=== PATIENT | male | born 1985 | race Caucasian/White ===

== ENCOUNTER 2020-11-19 08:12 | Emergency (ER) | payer OTHER, SELFPAY ==
[~2020-11-19] VITALS: Ht 182.9 cm; Wt 113.4 kg
[~2020-11-19 08:12] MED LIST: ALBU90OI INH; CRUTCH4 USE; DOXY100 PO; HYDACE5 PO; PROCODE120 PO
[2020-11-19 08:41] LABS: BASOPHILS ABSOLUTE AUTO 0.06 K/mm3 (0.00-0.23); BASOPHILS PERCENT AUTO 1 % (0-2); EOSINOPHILS ABSOLUTE AUTO 0.23 K/mm3 (0.00-0.68); EOSINOPHILS PERCENT AUTO 2 % (0-6); Hematocrit 51.5 % (37.0-53.0); Hemoglobin 17.7 g/dL (13.5-17.5); IMMATURE GRAN ABSOLUTE AUTO 0.04 K/mm3 (0.00-0.10); IMMATURE GRAN PERCENT AUTO 0 % (0-1); LYMPHOCYTES ABSOLUTE AUTO 4.55 K/mm3 (0.84-5.20); LYMPHOCYTES PERCENT AUTO 34 % (21-46); MONOCYTES ABSOLUTE AUTO 0.75 K/mm3 (0.16-1.47); MONOCYTES PERCENT AUTO 6 % (4-13); Mean Corpuscular HGB Conc 34.4 g/dL (31.5-36.5); Mean Corpuscular Volume 93 fL (80-100); Mean Platelet Volume 8.2 fL (9.1-12.4); NEUTROPHILS ABSOLUTE AUTO 7.64 K/mm3 (1.96-9.15); NEUTROPHILS PERCENT AUTO 58 % (41-73); Platelet Count 301 K/mm3 (150-400); RDW Coefficient Variation 12.9 % (11.7-14.2); RDW Standard Deviation 43.9 fL (35.1-46.3); Red Blood Cell Count 5.53 M/mm3 (4.30-5.90); White Blood Cell Count 13.27 K/mm3 (4.00-11.30)
[2020-11-19 08:59] LABS: Alanine Aminotransfer (ALT/SGP 93 U/L (12-78); Albumin, Blood 4.3 g/dL (3.4-5.0); Albumin/Globulin Ratio 1.1 (0.8-1.8); Alk Phos 75 U/L (50-136); Anion Gap 4 mmol/L (6-16); Aspartate Aminotrans (AST/SGOT 48 U/L (12-37); Bilirubin, Total 0.6 mg/dL (0.1-1.0); Blood Urea Nitrogen 11 mg/dL (8-24); Bun/Creatinine Ratio 11.9 (12.0-20.0); CO2, Blood 30 mmol/L (21-32); Calcium, Blood 9.9 mg/dL (8.5-10.1); Chloride, Blood 106 mmol/L (98-108); Creatinine, Blood 0.93 mg/dL (0.60-1.20); Globulin, Blood 3.9 g/dL (2.2-4.0); Glomerular Filtration Rate >60 (60-); Glucose, Blood 109 mg/dL (70-99); Sodium, Blood 140 mmol/L (136-145); Total Protein, Blood 8.2 g/dL (6.4-8.2)
[2020-11-19] MEDS ORDERED: METR500 PO (09:45)
[2020-11-19] MEDS ORDERED: CIPR500 PO (09:45)
[2021-03-01] MEDS ORDERED: CHLO25B PO (13:00)
[2021-03-01] MEDS ORDERED: ALLEGRA ALLERG180 MG PO (13:01)
[2021-03-01] MEDS ORDERED: LOSA25 PO (13:01)
== END 2020-11-19 09:52 | disposition home or self-care (01) ==
LOC: ER 08:12
PROVIDERS: Emergency Medicine
DX: R10.31 Right lower quadrant pain (principal); R11.0 Nausea
CPT/HCPCS: 36415; 74177; 80053; 83690; 85025; 96361; 96374; 96375; 99284-25; J2270; J2405; J7030; Q9967

== ENCOUNTER 2021-03-02 07:50 | Day surgery (SDC) | payer OTHER ==
[~2021-03-02] VITALS: Ht 182.9 cm; Wt 117.6 kg
[~2021-03-02 07:50] MED LIST changes: +ALLEGRA ALLERG180 MG PO; +CHLO25B PO; +CIPR500 PO; +LOSA25 PO; +METR500 PO
--- NOTE | 2021-03-02 08:57 | NUR ---
Ambulatory in Day Surgery. Patient states colon prep results clear. History, Chart, Medications and Allergies reviewed before start of procedure. Patient confirms NPO status and agrees with scheduled surgery. Patient States Post-Procedure ride home has been arranged.
--- NOTE | 2021-03-02 11:31 | NUR ---
Patient up to Ambulate independently. Gait steady. Discharge instructions reviewed with patient. Patient verbalizes understanding. Copy given to patient to take home.REVIEWED WITH VIA TELEPHONE PER PT REQUEST. Discharged via wheelchair to private car for ride home WITH
== END 2021-03-02 11:34 | disposition home or self-care (01) ==
LOC: ORSCMMR 07:50 → ORD 09:00 → ORSCMMR 09:00
PROVIDERS: Internal Medicine Gastroenterology
PROC: 0DB98ZX Excision of Duodenum, Via Natural or Artificial Opening Endoscopic, Diagnostic (ICD-10-PCS; principal; 2021-03-02 09:00)
PROC: 0DBN8ZX Excision of Sigmoid Colon, Via Natural or Artificial Opening Endoscopic, Diagnostic (ICD-10-PCS; principal; 2021-03-02 09:00)
PROC: 0DBK8ZX Excision of Ascending Colon, Via Natural or Artificial Opening Endoscopic, Diagnostic (ICD-10-PCS; principal; 2021-03-02 09:00)
PROC: 0DBB8ZX Excision of Ileum, Via Natural or Artificial Opening Endoscopic, Diagnostic (ICD-10-PCS; principal; 2021-03-02 09:00)
PROC: 0DBL8ZX Excision of Transverse Colon, Via Natural or Artificial Opening Endoscopic, Diagnostic (ICD-10-PCS; principal; 2021-03-02 09:00)
PROC: 0DB68ZX Excision of Stomach, Via Natural or Artificial Opening Endoscopic, Diagnostic (ICD-10-PCS; principal; 2021-03-02 09:00)
PROC: 0DB48ZX Excision of Esophagogastric Junction, Via Natural or Artificial Opening Endoscopic, Diagnostic (ICD-10-PCS; principal; 2021-03-02 09:00)
DX: R10.13 Epigastric pain (principal); R19.7 Diarrhea, unspecified; K25.9 Gastric ulcer, unspecified as acute or chronic, without hemorrhage or perforation; I10 Essential (primary) hypertension; F17.210 Nicotine dependence, cigarettes, uncomplicated; E66.01 Morbid (severe) obesity due to excess calories; Z68.35 Body mass index [BMI] 35.0-35.9, adult; Z79.899 Other long term (current) drug therapy
CPT/HCPCS: 88305; 88342; A9270; J2250; J2704; J7120

== ENCOUNTER → 2021-08-23 | Outpatient (CLI) | payer OTHER ==
[2021-08-23 18:54] LABS: BASOPHILS ABSOLUTE AUTO 0.07 K/mm3 (0.00-0.23); BASOPHILS PERCENT AUTO 1 % (0-2); EOSINOPHILS ABSOLUTE AUTO 0.26 K/mm3 (0.00-0.68); EOSINOPHILS PERCENT AUTO 2 % (0-6); Hematocrit 52.1 % (37.0-53.0); Hemoglobin 18.4 g/dL (13.5-17.5); IMMATURE GRAN ABSOLUTE AUTO 0.03 K/mm3 (0.00-0.10); IMMATURE GRAN PERCENT AUTO 0 % (0-1); LYMPHOCYTES ABSOLUTE AUTO 3.53 K/mm3 (0.84-5.20); LYMPHOCYTES PERCENT AUTO 33 % (21-46); MONOCYTES ABSOLUTE AUTO 0.78 K/mm3 (0.16-1.47); MONOCYTES PERCENT AUTO 7 % (4-13); Mean Corpuscular HGB 32.9 pg (26.0-34.0); Mean Corpuscular HGB Conc 35.3 g/dL (31.5-36.5); Mean Corpuscular Volume 93 fL (80-100); Mean Platelet Volume 8.4 fL (9.1-12.4); NEUTROPHILS ABSOLUTE AUTO 6.17 K/mm3 (1.96-9.15); NEUTROPHILS PERCENT AUTO 57 % (41-73); Platelet Count 346 K/mm3 (150-400); RDW Coefficient Variation 13.8 % (11.7-14.2); RDW Standard Deviation 46.7 fL (35.1-46.3); Red Blood Cell Count 5.59 M/mm3 (4.30-5.90); White Blood Cell Count 10.84 K/mm3 (4.00-11.30)
[2021-08-23 19:17] LABS: Alanine Aminotransfer (ALT/SGP 53 U/L (12-78); Albumin, Blood 3.8 g/dL (3.4-5.0); Albumin/Globulin Ratio 0.9 (0.8-1.8); Alk Phos 76 U/L (50-136); Anion Gap 6 mmol/L (6-16); Aspartate Aminotrans (AST/SGOT 29 U/L (12-37); Bilirubin, Total 0.7 mg/dL (0.1-1.0); Blood Urea Nitrogen 8 mg/dL (8-24); Bun/Creatinine Ratio 8.7 (12.0-20.0); CO2, Blood 29 mmol/L (21-32); Calcium, Blood 8.7 mg/dL (8.5-10.1); Chloride, Blood 100 mmol/L (98-108); Creatinine, Blood 0.92 mg/dL (0.60-1.20); Globulin, Blood 4.2 g/dL (2.2-4.0); Glomerular Filtration Rate >60 (60-); Glucose, Blood 102 mg/dL (70-99); Sodium, Blood 135 mmol/L (136-145)
== END ==
LOC: LAB SHORT 16:10
PROVIDERS: Physician Assistant
DX: I10 Essential (primary) hypertension (principal); F10.10 Alcohol abuse, uncomplicated; R53.83 Other fatigue
CPT/HCPCS: 80053; 84443; 85025

== ENCOUNTER 2022-02-27 10:10 | Inpatient (IN) | payer OTHER ==
[~2022-02-27] VITALS: Ht 182.9 cm; Wt 118.2 kg
[2022-02-27 10:36] LABS: BASOPHILS ABSOLUTE AUTO 0.03 K/mm3 (0.00-0.23); BASOPHILS PERCENT AUTO 0 % (0-2); EOSINOPHILS ABSOLUTE AUTO 0.05 K/mm3 (0.00-0.68); EOSINOPHILS PERCENT AUTO 1 % (0-6); Hematocrit 49.3 % (37.0-53.0); Hemoglobin 17.6 g/dL (13.5-17.5); IMMATURE GRAN ABSOLUTE AUTO 0.03 K/mm3 (0.00-0.10); IMMATURE GRAN PERCENT AUTO 0 % (0-1); LYMPHOCYTES ABSOLUTE AUTO 1.54 K/mm3 (0.84-5.20); LYMPHOCYTES PERCENT AUTO 18 % (21-46); MONOCYTES ABSOLUTE AUTO 0.56 K/mm3 (0.16-1.47); MONOCYTES PERCENT AUTO 6 % (4-13); Mean Corpuscular HGB Conc 35.7 g/dL (31.5-36.5); Mean Corpuscular Volume 95 fL (80-100); Mean Platelet Volume 8.4 fL (9.1-12.4); NEUTROPHILS PERCENT AUTO 75 % (41-73); Platelet Count 276 K/mm3 (150-400); RDW Coefficient Variation 13.7 % (11.7-14.2); RDW Standard Deviation 47.9 fL (35.1-46.3); Red Blood Cell Count 5.18 M/mm3 (4.30-5.90); White Blood Cell Count 8.81 K/mm3 (4.00-11.30)
[2022-02-27 10:51] LABS: Albumin, Blood 3.7 g/dL (3.4-5.0); Bilirubin, Total 0.6 mg/dL (0.1-1.0); Calcium, Blood 8.9 mg/dL (8.5-10.1); Creatinine, Blood 0.82 mg/dL (0.60-1.20); Globulin, Blood 3.6 g/dL (2.2-4.0); Potassium, Blood 3.6 mmol/L (3.5-5.5); Total Protein, Blood 7.3 g/dL (6.4-8.2)
[2022-02-27] MEDS ORDERED: Klor-Con M1010 MEQ PO (11:45)
[2022-02-27] MEDS ORDERED: OMEP20ER PO (11:46)
[2022-02-27] MEDS ORDERED: XYZAL5 MG PO (11:46)
[2022-02-27 11:57] LABS: Anti-Xa UFH, PHA Monitoring <0.10 IU/mL; International Normalized Ratio 1.01; Prothrombin Time Results 10.6 Sec (9.7-11.5)
[2022-02-27 12:19] LABS: SARS-Cov-2 (COVID-19) PCR, MMC NEGATIVE (NEGATIVE)
--- NOTE | 2022-02-27 14:55 | NUR ---
PT ARRIVED TO THE MEDICAL FLOOR VIA [facility] A/OX4, PLEASANT AND COOPERATIVE. THE PT WAS ABLE TO TRANSFER FROM THE GURNEY TO THE BED WITH MINIMAL ASSISTANCE. THE PT REPORTED THAT HE FELT LIGHT HEADED AND DIZZY, O2 WAS APPLIED AT 2L/MIN. THE PT DENIED ANY CHEST PAIN AT THIS TIME. THE PTS TROPONIIN WAS ELEVATED CRITICAL HIGH, ROBINA BOWENS HAD THE PT TRANSFERED TO PCU FOR CLOSER OBSERVATION. REPORT WAS CALLED TO FABIOLA BLANDON IN PCU. PT IS ON A CONTINUOS HEPRIN GTT AT THIS TIME. THE PT WAS TRANSFERED VIA WHEELCHAIR ACCOMPANIED BY THE HEADING AND PRIMING TOOL SETTER AND COMMUNITY HEALTH PROGRAM COORDINATOR.
[2022-02-27 15:05] LABS: CHOL/HDL RATIO 3.4; Cholesterol 168 mg/dL (50-200); HDL Cholesterol 49 mg/dL (>39); LDL/HDL RATIO 2.2; Low Density Lipoprotein Chol 106 mg/dL (0-110); Triglycerides 66 mg/dL (30-140); Very Low Density Lipoprot Chol 13 mg/dL (6-28)
--- NOTE | 2022-02-27 16:11 | NUR ---
SPOKE WITH PT PER POSSIBLE CPAP USE AT NIGHT ORDER. PT DENIES ANY USE OF OXYGEN, CPAP OR BIPAP WITH SLEEP.
[2022-02-27 16:57] LABS: U Amphetamine Screen Not Detected; U Barbituate Screen Not Detected; U Benzodiazapine Screen Not Detected; U Cannabinoids Screen DETECTED; U Cocaine Screen Not Detected; U Methadone Screen Not Detected; U Methamphetamine Screen Not Detected; U Opiates Screen DETECTED; U Phencyclidine Screen Not Detected
[2022-02-27 16:58] LABS: U Buprenorphine Screen Not Detected; U Oxycodone Screen Not Detected; U Propoxyphene Screen Not Detected
--- NOTE | 2022-02-27 18:07 | NUR ---
SHIFT SUMMARY: PT ARRIVES FROM MEDICAL FLOOR VIA W/C APPROX 1500, TRANSFERS SELF TO BED W/OUT DIFFICULTY. PT A&Ox4, ANSWERS QUESTIONS APPROPRIATELY, COOPERATIVE WITH CARE. PT DENIES SOB, MAINTAINS O2 SATS >92% ON RA. SINCE ARRIVAL TO UNIT, PT HAS DENIED CHEST PAIN/PRESSURE, SR ON MONITOR. HEPARIN INFUSION CONTINUES PER ORDERS. PT INDEPENDENT IN ROOM. AT THIS TIME, PLAN IS FOR PT TO BE NPO AT MIDNIGHT FOR ANGIOGRAM TOMORROW. DR FAYE HAS BEEN TO BEDSIDE AND EXPLAINED PLAN TO PT AND SPOUSE. PT RESTING QUIETLY IN BED WITH SPOUSE AT BEDSIDE, CALL LIGHT IN REACH.
--- NOTE | 2022-02-28 06:11 | NUR ---
SHIFT SUMMARY ASSUMED CARE OF PT AROUND 1900. PT IS A/OX4. HEART SOUNDS REGULAR, LUNG SOUNDS CLEAR. PT RECEIVED NICOTINE PATCH PER HOSPITLAIST DUE TO "FEELING ANTSY". PT HAD NO NEW COMPLAINTS T/O THE NIGHT. PT SLEPT MOST OF THE NIGHT. PT EXPRESSED A LITTLE ANXIETY ABOUT HIS PROCEDURE TODAY. PT HAS BEEN NPO EXCEPT MEDICATIONS AT MIDNIGHT.
--- NOTE | 2022-02-28 13:47 | NUR ---
UPDATE PT RETURNED FROM HEART [facility]UL[facility], [facility] REPORT RECEIVED FROM NELSY RN. TR BAND IN PLACE, 14CC OF AIR, ANGIO SITE IS CLEAR, NO HEMATOMA NOTED. MILD TENDERNESS TO FOREARM PROXIMAL TO ACCESS SITE. DISTAL PULSES PRESENT AND EQUAL.
--- NOTE | 2022-02-28 18:14 | NUR ---
SHIFT SUMMARY PT HAS BEEN INDEPENDENT IN ROOM, FAMILY HAS BEEN PRESENT AT BEDSIDE FOR A MAJORITY OF THE DAY. PT HAD AN EPISODE OF DIZZINESS ACCOMPANIED WITH NAUSEA AND VOMITING THAT OCCURED AT APPROXIMATELY 1400. ANTIEMETICS WERE GIVEN AND THE EPISODE RESOLVED. PT EXPRESSED CONCERNS OVER ABILITY TO QUIT SMOKING BUT ALSO DEMONSTRATED A STRONG DESIRE. THIS RN EDUCATED THE PT ON SMOKING CESSATION ASSISTANCE AVAILABLE. SBP RANGE WAS 146-162, ALL OTHER VITALS HAVE BEEN WNL.
--- NOTE | 2022-03-01 06:21 | NUR ---
SHIFT SUMMARY ASSUMED CARE OF PT AT 1900. PT IS A/OX4. HEART SOUNDS REGULAR, LUNG SOUNDS CLEAR. ANGIO SITE C/D/I WITH SMALL BUMP ON SITE. TENDER TO TOUCH. PT HAS NO NEW COMPLAINTS AND STATES HE WANTS TO STOP SMOKING BUT IS WORRIED THAT IT WILL TAKE LONGER FOR HIM TO STOP CHEWING. PT HOPES TO DISCHARGE TODAY.
[2022-03-01] MEDS ORDERED: ASPI81CH PO (10:20)
[2022-03-01] MEDS ORDERED: PANT40 PO (10:20)
[2022-03-01] MEDS ORDERED: CLOP75 PO (10:21)
[2022-03-01] MEDS ORDERED: ATOR80 PO (10:21)
[2022-03-01] MEDS ORDERED: NICO21TP TOP (10:22)
--- NOTE | 2022-03-01 11:34 | NUR ---
DISCHARGE SUMMARY PT WAS TRANSPORTED BY WHEELCHAIR TO PERSONAL VEHICLE. ALL PERSONAL BELONGINGS AND DISCHARGE INSTRUCTIONS WERE IN PT'S POSSESSION AT TIME OF DISCHARGE. ALL QUESTIONS AND CONCERNS WERE ADDRESSED PRIOR TO DISCHARGE, PT STATED AN UNDERSTANDING OF INSTRUCTIONS AND WHO THEY MAY CONTACT WITH FURTHER QUESTIONS OR CONCERNS. PT AND SPOUSE VERBALIZED AN UNDERSTANDING OF WHAT SIGNS AND SYMPTOMS CONSTITUTED AN EMERGENCY AND HOW TO SEEK HELP.
== END 2022-03-01 11:18 | disposition home or self-care (01) | DRG 282 ==
LOC: ER 10:10 → MEDS 10:11 → PCU 14:45 → MEDS 14:45 → PCU 15:31
PROVIDERS: Emergency Medicine; Nurse Practitioner Acute Care; ADMIT Internal Medicine
PROC: 4A023N7 Measurement of Cardiac Sampling and Pressure, Left Heart, Percutaneous Approach (ICD-10-PCS; principal; 2022-02-28)
PROC: B2111ZZ Fluoroscopy of Multiple Coronary Arteries using Low Osmolar Contrast (ICD-10-PCS; 2022-02-28)
DX: I21.4 Non-ST elevation (NSTEMI) myocardial infarction (principal); I10 Essential (primary) hypertension; Z20.822 Contact with and (suspected) exposure to COVID-19; J45.909 Unspecified asthma, uncomplicated; K21.9 Gastro-esophageal reflux disease without esophagitis; F12.90 Cannabis use, unspecified, uncomplicated; F11.90 Opioid use, unspecified, uncomplicated; F17.210 Nicotine dependence, cigarettes, uncomplicated; Z71.6 Tobacco abuse counseling; Z82.49 Family history of ischemic heart disease and other diseases of the circulatory system; Z91.018 Allergy to other foods; Z79.899 Other long term (current) drug therapy
CPT/HCPCS: 36415; 71045; 76937; 80053; 80061; 83036; 84484; 85025; 85520; 85610; 85730; 86850; 86900; 86901; 93005; 93010; 93306; 93458; 94760; 96374; 96375; 99152; 99153; 99285-25; A9270; C1769; C1887; C1894; J1644; J1885; J2250; J2405; J3010; J7030; J7040; Q9967; U0004

== ENCOUNTER 2023-03-01 09:12 | Day surgery (SDC) | payer OTHER ==
[~2023-03-01] VITALS: Ht 182.9 cm; Wt 131.7 kg
[~2023-03-01 09:12] MED LIST changes: +ASPI81CH PO; +ATOR80 PO; +CLOP75 PO; +Klor-Con M1010 MEQ PO; +NICO21TP TOP; +OMEP20ER PO; +PANT40 PO; +XYZAL5 MG PO
[2023-03-01] MEDS ORDERED: [UNRECOGNIZED DRUG - OTHER] (10:06)
[2023-03-01] MEDS ORDERED: LOSARTAN-HCTZ1 EACH PO (10:08)
--- NOTE | 2023-03-01 11:21 | NUR ---
03/01/23 1121 Rossi Lan PT IN PRONE POSITION WITH 3 PILLOW UNDER CHEST AREA PER DR. BECKFORD, A PILLOW UNDER BILATERAL CALVES, GEL PAD ON BED UNDER KNEES,EACH ARM EXTENDED ON ARMBOARD WITH GEL PAD UNDER AND SECURED WITH SAFTEY STRAP. A SAFETY STRAP PLACED ACROSSED THIGHS AND ANOTHER ONE ACROSSED UPPER BACK. HEAD IS PLACED IN A FOAM REST BY JAN LE.
--- NOTE | 2023-03-01 12:55 | NUR ---
03/01/23 1255 KYLEE LOO PAIN PILL NORCO 5/325MG GIVEN FOR PAIN. PT REQUESTS MORE IV PAIN MEDICATON.
[2023-03-01 13:04] VITALS: BP 126/92
== END 2023-03-01 13:50 | disposition home or self-care (01) ==
LOC: ORSCSDS 09:12
PROVIDERS: Surgery
PROC: 0DBQXZZ Excision of Anus, External Approach (ICD-10-PCS; principal; 2023-03-01 10:15)
DX: K60.3 Anal fistula (principal); I10 Essential (primary) hypertension; E78.5 Hyperlipidemia, unspecified; I25.2 Old myocardial infarction; Z87.891 Personal history of nicotine dependence; Z79.02 Long term (current) use of antithrombotics/antiplatelets; E66.9 Obesity, unspecified; Z68.39 Body mass index [BMI] 39.0-39.9, adult; K21.9 Gastro-esophageal reflux disease without esophagitis; Z79.899 Other long term (current) drug therapy
CPT/HCPCS: A9270; J0690; J1100; J1885; J2250; J2405; J2704; J2795; J3010; J7120

== ENCOUNTER → 2023-08-19 | Outpatient (CLI) | payer OTHER ==
[~2023-08-19] MED LIST changes: +LOSARTAN-HCTZ1 EACH PO; +[UNRECOGNIZED DRUG - OTHER]
[2023-08-23 21:08] LABS: IMMUNOGLOBULIN A, QN, SERUM 257 mg/dL (90-386); T-TRANSGLUTAMINASE (TTG) IGA <2 U/mL (0-3); T-TRANSGLUTAMINASE (TTG) IGG 4 U/mL (0-5)
== END ==
LOC: LAB 12:30 → LAB SHORT 12:30
PROVIDERS: Family Medicine
DX: K62.89 Other specified diseases of anus and rectum (principal); R10.13 Epigastric pain
CPT/HCPCS: 82784; 83516; 86258; 86364

== ENCOUNTER → 2023-10-03 | Outpatient (CLI) | payer OTHER ==
[2023-10-05 04:53] LABS: CALPROTECTIN,FECAL <5 ug/g (<=49); PANCREATIC ELASTASE,FECAL >800 ug/g (>=100)
== END | disposition home or self-care (01) ==
LOC: LAB 10:52 → LAB SHORT 10:52
PROVIDERS: Family Medicine
DX: K62.89 Other specified diseases of anus and rectum (principal); R10.13 Epigastric pain
CPT/HCPCS: 82653; 83993; 87338